=== PATIENT | male | born 1990 | race Caucasian/White ===

== ENCOUNTER 2022-02-12 15:25 | Outpatient (CLI) | payer BC, SELFPAY ==
--- NOTE | 2022-02-12 16:34 | XR_ITS ---
WS: [id number] LUMBAR SPINE: 3 VIEWS TECHNIQUE: AP, lateral and L5-S1 spot. HISTORY: BACK PAIN COMPARISON: None available. Lumbar vertebra are normally aligned. No loss of disc space or vertebral body height. Mild bilateral SI joint sclerosis and mild narrowing. No fusion. XR/XR lumbar spine 2-3V* [id number] IMPRESSION: 1. Normal lumbar spine. 2. Bilateral sacroiliitis. SI joints are narrowed with sclerosis.
--- NOTE | 2022-02-12 16:34 | XR_ITS ---
WS: [id number] XR thoracic spine 3V* [id number] REASON FOR EXAM: BACK PAIN FINDINGS: No vertebral body compression deformity or focal lesion. Intervertebral disc spaces are well preserved. Normal thoracic spine curvature. XR/XR thoracic spine 3V* [id number] IMPRESSION: No significant abnormality.
== END 2022-02-12 15:26 | disposition home or self-care (01) ==
PROVIDERS: PCP Nurse Practitioner Family; Visit Provider Family Medicine
DX: M54.6 Pain in thoracic spine (principal); M54.50 Low back pain, unspecified; M46.1 Sacroiliitis, not elsewhere classified
CPT/HCPCS: 72072; 72100

== ENCOUNTER 2023-11-28 18:01 | Inpatient (IN) | payer BC, SELFPAY ==
[2023-11-28 18:17] VITALS: BP 147/93; PULSE 108; RESP 18; TEMP 37.5; O2SAT 98; BMI 22.4
[2023-11-28 18:58] LABS: Basophils # 0.1 10^3/uL (0.0-0.1); Basophils % 0.4 %; Eosinophils # 0.3 10^3/uL (0.0-0.8); Eosinophils % 2.3 %; Hematocrit 44.2 % (37-53); Lymphocytes # 2.3 10^3/uL (0.8-4.8); Lymphocytes % 20.1 %; Mean Corpuscular HGB Conc 34.6 g/dL (30-55); Mean Corpuscular Hemoglobin 29.3 pg (27-33); Mean Corpuscular Volume 84.7 fl (82-101); Mean Platelet Volume 9.3 fL (7.4-10.4); Monocytes # 0.9 10^3/uL (0.2-0.9); Monocytes % 7.7 %; Neutrophils # 7.79 10^3/uL (1.8-7.7); Neutrophils % 69.2 %; Nucleated Red Blood Cells % 0 %; Platelet Count 269 10^3/cmm (157-399); Red Blood Count 5.22 10^6/uL (3.85-5.65); Red Cell Distribution Width 12.4 % (12.1-15.1); White Blood Count 11.27 10^3/uL (3.29-11.43)
[2023-11-28 19:13] LABS: Alanine Aminotransferase 372 U/L (0-41); Albumin Level 4.7 g/dL (3.5-5.2); Alkaline Phosphatase 36 U/L (40-130); Anion Gap 15.1 (5-19); Blood Urea Nitrogen 26 mg/dL (6-20); Calcium 9.3 mg/dL (8.5-10.5); Carbon Dioxide 25 mmol/L (22-29); Chloride 102 mmol/L (98-107); Creatinine Clr Calc Pharmacy 90.9051; Globulin 2.6 g/dL (1.3-4.6); Glucose 112 mg/dL (65-115); Osmolality Calculated 292 mOsm/kg (285-295); Potassium 4.1 mmol/L (3.5-5.1); Sodium 138 mmol/L (136-145); Total Bilirubin 0.4 mg/dL (0.15-1.2); Total Protein 7.3 g/dL (6.6-8.7)
[2023-11-28 19:26] LABS: Aspartate Amino Transferase 1459 U/L (0-40)
--- NOTE | 2023-11-28 19:29 | CTR_ITS ---
PROCEDURE INFORMATION: Exam: CT Abdomen And Pelvis With Contrast Exam date and time: 11/28/2023 7:54 PM Age: 33 years old Clinical indication: Other: Dark urine; Additional info: Dark urine, elevated ast TECHNIQUE: Imaging protocol: Computed tomography of the abdomen and pelvis with contrast. Radiation optimization: All CT scans at this facility use at least one of these dose optimization techniques: automated exposure control; mA and/or kV adjustment per patient size (includes targeted exams where dose is matched to clinical indication); or iterative reconstruction. Contrast material: OMNI 350; Contrast volume: 100 ml; Contrast route: INTRAVENOUS (IV); COMPARISON: CR XR lumbar spine 2-3V* [id number] 02/12/2022 4:34 PM RADIATION DOSE METRICS: Total DLP (mGy-cm): 449.4 FINDINGS: Lungs: The lung bases are clear and free of effusions. Liver: The liver is normal except for some incidental focal fat in the liver near the falciform ligament. Gallbladder and biliary ducts: Normal. No calcified stones. No ductal dilation. Pancreas: Normal. No ductal dilation. Spleen: Normal. No splenomegaly. Adrenal glands: Normal. No mass. Kidneys and ureters: Normal. No hydronephrosis. Stomach and bowel: No bowel obstruction or ileus. No free fluid, free air or abscess. No bowel obstruction or ileus. Appendix: No evidence of appendicitis. Intraperitoneal space: See Stomach and bowel finding. Vasculature: Unremarkable. No abdominal aortic aneurysm. Lymph nodes: Unremarkable. No enlarged lymph nodes. Urinary bladder: Unremarkable as visualized. Reproductive: Unremarkable as visualized. Bones/joints: Mild chronic degenerative changes in the lower lumbar spine. Soft tissues: Unremarkable. CT/CT abdomen pelvis w con* [id number] IMPRESSION: Unremarkable abdomen and pelvis
--- NOTE | 2023-11-28 19:35 | ED_ITS ---
HPI - Male Genitourinary 2 General: Chief complaint: Urogenital-Male Stated complaint: Urain is a dark brown color Time Seen by Provider: 11/28/23 18:44 Source: patient Mode of arrival: ambulatory Limitations: no limitations History of Present Illness: Patient is a 33-year-old male who presents to the emergency department complaining of dark urine onset today. Patient states that earlier this morning he had an episode of urination that he noticed it to be very dark, thought he was dehydrated so he increase his water consumption. However he became concerned when his next subsequent voids revealed that it was still dark. This is his only complaint at this time, as he is not reporting any pain, obvious blood in his urine, history of kidney stones, fever, nausea or vomiting, abdominal pain, or back pain. He denies any pertinent past medical history. No dysuria. MD Complaint: other (Dark urine) Onset (ago): hour(s) Duration: constant Associated symptoms: Deny dysuria, hematuria, nausea or vomiting Review of Systems 2 General: Reports: 10 or more systems reviewed and unremarkable except in HPI and below Const: Denies: fever(s), chills, change in appetite, change in weight or diaphoresis ENMT: Denies: throat pain or hoarseness Card: Denies: chest pain, palpitations or lightheadedness Resp: Denies: dyspnea, productive cough or wheezing GI: Denies: abdominal pain, nausea, vomiting, diarrhea, constipation, bloating, change in stool character or hematochezia : Reports: other (Dark urine); Denies: flank pain, difficulty urinating, dysuria, urinary frequency, urinary urgency or hematuria Musc: Denies: neck pain or back pain Skin/Breast: Denies: rash or new lesions Neuro: Denies: headache(s) or dizziness Physical Exam 2 Const: COMMON NORMALS: no acute distress, average body habitus, patient oriented x3, no limitations, healthy appearing, alert and well nourished G ENERAL APPEARANCE: cooperative and comfortable ORIENTATION/CONSCIOUSNESS: Yes awake HENMT: COMMON NORMALS: normocephalic, atraumatic, hearing grossly normal bilaterally, external ears normal, Normal external nose present, Normal nasal mucous membranes and turbinates present and moist oral mucous membranes HEAD & SCALP: normocephalic and atraumatic NOSE: Normal external nose present and Normal nasal mucous membranes and turbinates present EXTERNAL EAR: Yes external ears normal Eye: COMMON NORMALS: Equal, round and reactive pupils present, EOMs intact bilaterally, conjunctivae normal and normal visual hood by confrontation C ONJUNCTIVA: Yes conjunctivae normal PUPIL: Yes Equal, round and reactive pupils present Neck/C-Spine: COMMON NORMALS: full ROM, supple, no meningeal signs and no JVD Resp: COMMON NORMALS: normal respiratory effort, No retractions, No use of accessory muscles and clear to auscultation bilaterally AUSCULTATION: clear to auscultation bilaterally, no crackles, no rales, no rhonchi and no wheezes Cardio: COMMON NORMALS: no JVD, regular rate, regular rhythm, S1 normal heart sound present, S2 normal heart sound present, No gallops present (Cardio), No clicks present (Cardio), No murmurs present (Cardio), No rub (Cardio) and Peripheral pulses 2+ throughout RATE: regular rate RHYTHM: regular rhythm HEART SOUNDS: S1 normal heart sound present and S2 normal heart sound present PERIPHERAL PULSES: Peripheral pulses 2+ throughout GI: COMMON NORMALS: Normal to inspection, nondistended, normoactive bowel sounds present, Soft to palpation, non-tender, No hepatosplenomegaly present and no masses AUSCULTATION: Yes normoactive bowel sounds PALPATION: Yes Soft to palpation, No Guarding due to palpation present (GI), No Rigid due to palpation and Yes No hepatosplenomegaly present RECTAL EXAM: Yes deferred : COMMON NORMALS: Yes no CVA tenderness BLADDER/KIDNEY EXAM: Yes no CVA tenderness Back/Pelvis: COMMON NORMALS: no CVA tenderness Extremity: COMMON NORMALS: normal to inspection and full ROM Neuro: COMMON NORMALS: patient oriented x3, moves all extremities, no focal motor deficits and no sensory deficits noted SENSORIUM/ORIENTATION: Yes alert MENINGEAL SIGNS: Yes no meningeal signs Psych: COMMON NORMALS: mental status grossly normal, cooperative and speech normal SPEECH: Yes normal speech Skin: COMMON NORMALS: no rashes or lesions noted GENERAL SKIN EXAM: no rashes or lesions noted Course 2 Vital Signs: Vital signs: Vital Signs Temperature 99.5 F 11/28/23 18:17 Pulse Rate 98 11/28/23 20:30 Respiratory Rate 16 11/28/23 20:30 Blood Pressure 138/91 11/28/23 20:30 Pulse Oximetry 100 11/28/23 20:30 Oxygen Delivery Me thod Room Air 11/28/23 18:17 MDM - Male Medical Decision Making Patient presented with concerns of episodes of dark urine. He had no other symptoms to report, no pain or burning with urination. His vitals on arrival were ultimately unremarkable, condition has remained stable throughout ED course. Physical examination was completely normal. Initial CBC did not reveal any abnormalities, though his CMP revealed his AST to be 1500 and significantly elevated compared to his ALT. Upon further questioning he denies any history of heavy alcohol use or cirrhosis of the liver. Additionally after reexamination he is not having any pain in the right upper quadrant. Urinalysis revealed evidence of blood, though no signs of infection. BUN and creatinine both found to be mildly elevated, however his CPK was noted to be greater than 125,000. A hepatitis panel was ordered and negative, along with CT of the abdomen pelvis. I spoke with hospitalist/infectious disease physician, Dr. Rosales, who requests troponin series EKG urine drug screen and blood cultures at this time and [facility]. Informed patient of this who is agreeing on coming into the hospital. Care of this patient discussed with supervising ED physician, Dr. Mccauley, who agrees with disposition at this time. Lab Data I reviewed the patient's lab results. 11/28/23 18:45 11/28/23 18:45 Radiology Impressions Abdomen/Pelvis CT 11/28/23 19:29 IMPRESSION: Unremarkable abdomen and pelvis Laboratory Results WBC 11.27 10^3/uL (3.29-11.43) 11/28/23 18:45 RBC 5.22 10^6/uL (3.85-5.65) 11/28/23 18:45 Hgb 15.30 g/dL (11.27-16.99) 11/28/23 18:45 Hct 44.2 % (37-53) 11/28/23 18:45 MCV 84.7 fl (82-101) 11/28/23 18:45 MCH 29.3 pg (27-33) 11/28/23 18:45 MCHC 34.6 g/dL (30-55) 11/28/23 18:45 RDW 12.4 % (12.1-15.1) 11/28/23 18:45 Plt Count 269 10^3/cmm (157-399) 11/28/23 18:45 MPV 9.3 fL (7.4-10.4) 11/28/23 18:45 Neut % (Auto) 69.2 % 11/28/23 18:45 Lymph % (Auto) 20.1 % 11/28/23 18:45 [place] % (Auto) 7.7 % 11/28/23 18:45 Eos % (Auto) 2.3 % 11/28/23 18:45 Baso % (Auto) 0.4 % 11/28/23 18:45 Neut # (Auto) 7.79 10^3/uL (1.8-7.7) H 11/28/23 18:45 Lymph # (Auto) 2.3 10^3/uL (0.8-4.8) 11/28/23 18:45 [place] # (Auto) 0.9 10^3/uL (0.2-0.9) 11/28/23 18:45 Eos # (Auto) 0.3 10^3/uL (0.0-0.8) 11/28/23 18:45 Baso # (Auto) 0.1 10^3/uL (0.0-0.1) 11/28/23 18:45 Nucleated RBC % (auto) 0 % 11/28/23 18:45 Nucleated RBCs # 0.0 /100WBC 11/28/23 18:45 Sodium 138 mmol/L (136-145) 11/28/23 18:45 Potassium 4.1 mmol/L (3.5-5.1) 11/28/23 18:45 Chloride 102 mmol/L (98-107) 11/28/23 18:45 Carbon Dioxide 25 mmol/L (22-29) 11/28/23 18:45 Anion Gap 15.1 (5-19) 11/28/23 18:45 BUN 26 mg/dL (6-20) H 11/28/23 18:45 Creatinine 1.3 mg/dL (0.7-1.2) H 11/28/23 18:45 GFR Calculation 64.0 mL/min (90-130) L 11/28/23 18:45 Glucose 112 mg/dL (65-115) 11/28/23 18:45 Calculated Osmolality 292 mOsm/kg (285-295) 11/28/23 18:45 Calcium 9.3 mg/dL (8.5-10.5) 11/28/23 18:45 Total Bilirubin 0.4 mg/dL (0.15-1.2) 11/28/23 18:45 AST 1459 U/L (0-40) H 11/28/23 18:45 ALT 372 U/L (0-41) H 11/28/23 18:45 Alkaline Phosphatase 36 U/L (40-130) L 11/28/23 18:45 Creatine Kinase > 137049 U/L (39-308) H* 11/28/23 18:45 Total Protein 7.3 g/dL (6.6-8.7) 11/28/23 18:45 Albumin 4.7 g/dL (3.5-5.2) 11/28/23 18:45 Globulin 2.6 g/dL (1.3-4.6) 11/28/23 18:45 Urine Color Yellow (Yellow) 11/28/23 20:37 Urine Appearance Clear (CLEAR) 11/28/23 20:37 Urine pH 5 (5-7) 11/28/23 20:37 Ur Specific [place] 1.010 (1.005-1.030) 11/28/23 20:37 Urine Protein 1+ (Negative) H 11/28/23 20:37 Urine Glucose (UA) Norm (Normal) 11/28/23 20:37 Urine Ketones Negative (Negative) 11/28/23 20:37 Urine Blood 3+ (Negative) H 11/28/23 20:37 Urine Nitrate Negative (Negative) 11/28/23 20:37 Urine Bilirubin Neg (Negative) 11/28/23 20:37 Urine Urobilinogen Neg mg/dL (Negative) 11/28/23 20:37 Ur Leukocyte Esterase Negative (Negative) 11/28/23 20:37 Urine RBC 0-4 /hpf (0-2) H 11/28/23 20:37 Urine WBC 0-4 /hpf (0-5) H 11/28/23 20:37 Ur Squamous Epith Cells None /hpf (0-5) 11/28/23 20:37 Amorphous Sediment 2+ /hpf 11/28/23 20:37 Urine Bacteria Trace /hpf (NONE) 11/28/23 20:37 Urine Mucus 2+ /hpf 11/28/23 20:37 Urine Opiates Screen Negative ng/mL (Negative) 11/28/23 20:37 Ur Barbiturates Screen Negative ng/mL (Negative) 11/28/23 20:37 Ur Phencyclidine Scrn Negative ng/mL (Negative) 11/28/23 20:37 Ur Amphetamines Screen Negative ng/mL (Negative) 11/28/23 20:37 U Benzodiazepines Scrn Negative ng/mL (Negative) 11/28/23 20:37 Urine Cocaine Screen Negative ng/mL (Negative) 11/28/23 20:37 U Marijuana (THC) Screen Negative ng/mL (Negative) 11/28/23 20:37 Hepatitis A IgM Ab Non-reactive (Nonreactive) 11/28/23 18:45 Hep Bs Antigen Non-reactive (Nonreactive) 11/28/23 18:45 Hep B Core IgM Ab Non-reactive (Nonreactive) 11/28/23 18:45 Hepatitis C Antibody Non-reactive (Nonreactive) 11/28/23 18:45 All radiology interpretation(s) finalized by discharge Discharge Plan Discharge Patient Disposition: Admitted As Inpatient Admit Provider: Dalia Rosales Clinical Impression: Rhabdomyolysis, Elevated liver enzymes Condition: Stable Coding Level of Care Code ED Hydramatic Mechanic for González Wilson
[2023-11-28] MEDS: sodium chloride 0.9% 1,000 ML 999 ML IV (19:40)
[2023-11-28] MEDS: iohexol 350 mg/mL 500 mL Btl (per mL) IV (19:57)
[2023-11-28 20:30] VITALS: BP 138/91; PULSE 98; RESP 16; O2SAT 100
[2023-11-28 21:13] LABS: Hepatitis A Antibody IgM Non-Reactive (Nonreactive); Hepatitis B Core IgM Non-Reactive (Nonreactive); Hepatitis B Surface Antigen Non-Reactive (Nonreactive); Hepatitis C Virus Antibody Non-Reactive (Nonreactive)
[2023-11-28 21:15] LABS: Urine Appearance Clear (CLEAR); Urine Color Yellow (Yellow); pH Urine 5 (5-7)
[2023-11-28 21:16] LABS: Add Urine Culture? No; Add Urine Microscopic? YES; Amorphous Sediment Urine 2+ /hpf; Bacteria Urine TRACE /hpf; Bilirubin Urine Neg (Negative); Blood Urine 3+ (Negative); Glucose Urine UA Norm (Normal); Ketones Urine Negative (Negative); Leukocyte Esterase Urine Negative (Negative); Mucus Urine 2+ /hpf; Nitrate Urine Negative (Negative); Protein Urine 1+ (Negative); RBC Urine 0-4 /hpf (0-2); Urobilinogen Urine Neg (Negative); WBC Urine 0-4 /hpf (0-5)
[2023-11-28 21:35] LABS: Creatine Phosphokinase > 125866 U/L (39-308)
--- NOTE | 2023-11-28 22:02 | ECG_ITS ---
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 Measurements Intervals [place] Rate: 71 P: 57 SD: 156 QRS: 44 QRSD: 90 T: 59 QT: 347 QTc: 379 Interpretive Statements SINUS RHYTHM EARLY REPOLARIZATION [ST ELEVATION WITH NORMALLY INFLECTED T-WAVE] No previous ECG available for comparison Electronically Signed On 11-29-2023 23:43:00 CDT by Goldy Mendez M.D. [id number]
[2023-11-28 22:03] LABS: Amphetamines Screen Urine Negative (Negative); Barbiturates Screen Urine Negative (Negative); Benzodiazepines Screen Urine Negative (Negative); Cocaine Screen Urine Negative (Negative); Opiate Screen Urine Negative (Negative); PCP Screen Urine Negative (Negative); THC Screen Urine Negative (Negative)
[2023-11-28 22:35] VITALS: BMI 22.4
[2023-11-28 22:37] VITALS: BP 131/89; PULSE 91; RESP 14; TEMP 37.5; O2SAT 100
[2023-11-28 23:54] VITALS: BP 130/83; PULSE 73; RESP 19; TEMP 36.9; O2SAT 97
[2023-11-29] VITALS (8 sets, daily range): BP systolic 122–133; BP diastolic 72–83; PULSE 50–89; RESP 17–20; TEMP 36.5–36.9; O2SAT 97–98
[2023-11-29 00:44] LABS: Troponin(5th) Baseline 48 ng/L (0-15)
--- NOTE | 2023-11-29 02:24 | PM.HP ---
Providers/Chief Complaint Admitting Physician: Dalia Rosales MD Primary Care Provider: Herberth Giang NP Chief Complaint: Urain is a dark brown color History of Present Illness Mark White is a 33 year old male who presented to the emergency room after noticing high colored urine. State of health until yesterday when he noticed his urine to be extremely uncomfortable. This made him concerned to come to the emergency room. Here he was found to have close transaminitis and rhabdomyolysis. He denies any IV drug use. Denies any recent nausea vomiting diarrhea. He has recently started working out in the gym over the weekend. He has had generalized body ache thereafter. He has been drinking some Meal replacement protein supplements over the past few months. He is unsure of contents of the same. No recent URI symptoms, cough, chest pain, dyspnea. No abdominal pain, nausea or vomiting, diarrhea. No recent fever. T max 99.5F, no recent sick contacts Review of Systems General: Reports: 10 or more systems reviewed and unremarkable except in HPI and below Const: Denies: fever(s), chills or body aches Eyes: Denies: change in vision, blurry vision or photophobia ENMT: Reports: hoarseness; Denies: throat pain, enlarged tonsils, odynophagia or nasal congestion Card: Denies: chest pain, palpitations, irregular heart rhythm, edema, swelling of feet/ankles, lightheadedness, pre-syncope, dyspnea on exertion or orthopnea Resp: Denies: dyspnea, productive cough, non-productive cough, wheezing, stridor, pain on inspiration, change in phlegm color, hemoptysis or chest congestion GI: Denies: abdominal pain, nausea, vomiting, hematemesis, coffee ground emesis, dysphagia, heartburn, diarrhea, constipation, GI cramping, change in stool character, hematochezia or melena : Denies: flank pain, dysuria, urinary frequency, urinary urgency, urinary hesitancy or hematuria Musc: Denies: neck pain, back pain, extremity pain, joint swelling, joint warmth or deformity Neuro: Denies: headache(s), numbness in extremities, weakness in extremities, sensory changes, difficulty walking, frequent falls, dizziness, vertigo, behavioral changes, Slurred speech present or seizure-like activity Psych: Denies: anxiety, depression, suicidal ideation or homicidal ideation Endo: Denies: polyuria, polydipsia, tired all the time, cold intolerance or hot flashes Jon/Lymph: Denies: easy bruising or easy bleeding Medications/Allergies Home Medications Medication Instructions Recorded Confirmed Last Taken Type No Known Home Medications 11/28/23 11/28/23 Unknown History Allergies Allergy/AdvReac Type Severity Reaction Status Date / Time epinephrine Allergy Unknown Verified 11/28/23 18:23 morphine Allergy Unknown Verified 11/28/23 18:23 Penicillins Allergy Unknown Verified 11/28/23 18:22 Sulfa (Sulfonamide Allergy Unknown Verified 11/28/23 18:23 Antibiotics) Vitals/I&O/Wt Last Vital Signs Temp 98.4 F 11/28/23 23:54 Pulse 73 11/28/23 23:54 Resp 19 H 11/28/23 23:54 BP 130/83 11/28/23 23:54 Pulse Ox 97 11/28/23 23:54 O2 Del Method Room Air 11/28/23 23:54 11/28/23 11/28/23 11/29/23 14:59 22:59 06:59 Intake Total 1000 / 1000 Balance 1000 / 1000 Weight last 48 hrs Weight 77.111 kg Weight 77.111 kg Weight 77.111 kg Physical Exam Narrative: General: No acute distress, AO x3 HEENT: PERRLA, pupils bilaterally equal and reactive, pallors not present Chest: Normal vesicular breath sounds, no added sounds, equal good air entry bilaterally CVS: S1-S2 regular, no murmurs, no tachycardia, no gallops, no rubs Abdomen: Soft, nontender, no organomegaly, bowel sounds present Neuro: No focal deficits, no facial deformity, AO x3, power 5/5 in all limbs Extremities: Multiple tatttoos over B/L upper extremities Data 11/28/23 18:45 11/29/23 02:20 Other Labs: Radiology Impressions Abdomen/Pelvis CT 11/28/23 19:29 IMPRESSION: Unremarkable abdomen and pelvis Laboratory Results WBC 11.27 10^3/uL (3.29-11.43) 11/28/23 18:45 RBC 5.22 10^6/uL (3.85-5.65) 11/28/23 18:45 Hgb 15.30 g/dL (11.27-16.99) 11/28/23 18:45 Hct 44.2 % (37-53) 11/28/23 18:45 MCV 84.7 fl (82-101) 11/28/23 18:45 MCH 29.3 pg (27-33) 11/28/23 18:45 MCHC 34.6 g/dL (30-55) 11/28/23 18:45 RDW 12.4 % (12.1-15.1) 11/28/23 18:45 Plt Count 269 10^3/cmm (157-399) 11/28/23 18:45 MPV 9.3 fL (7.4-10.4) 11/28/23 18:45 Neut % (Auto) 69.2 % 11/28/23 18:45 Lymph % (Auto) 20.1 % 11/28/23 18:45 [place] % (Auto) 7.7 % 11/28/23 18:45 Eos % (Auto) 2.3 % 11/28/23 18:45 Baso % (Auto) 0.4 % 11/28/23 18:45 Neut # (Auto) 7.79 10^3/uL (1.8-7.7) H 11/28/23 18:45 Lymph # (Auto) 2.3 10^3/uL (0.8-4.8) 11/28/23 18:45 [place] # (Auto) 0.9 10^3/uL (0.2-0.9) 11/28/23 18:45 Eos # (Auto) 0.3 10^3/uL (0.0-0.8) 11/28/23 18:45 Baso # (Auto) 0.1 10^3/uL (0.0-0.1) 11/28/23 18:45 Nucleated RBC % (auto) 0 % 11/28/23 18:45 Nucleated RBCs # 0.0 /100WBC 11/28/23 18:45 Sodium 138 mmol/L (136-145) 11/29/23 02:20 Potassium 4.1 mmol/L (3.5-5.1) 11/29/23 02:20 Chloride 103 mmol/L (98-107) 11/29/23 02:20 Carbon Dioxide 23 mmol/L (22-29) 11/29/23 02:20 Anion Gap 16.1 (5-19) 11/29/23 02:20 BUN 21 mg/dL (6-20) H 11/29/23 02:20 Creatinine 1.0 mg/dL (0.7-1.2) 11/29/23 02:20 GFR Calculation 86.6 mL/min (90-130) L 11/29/23 02:20 Glucose 93 mg/dL (65-115) 11/29/23 02:20 Calculated Osmolality 289 mOsm/kg (285-295) 11/29/23 02:20 Calcium 8.9 mg/dL (8.5-10.5) 11/29/23 02:20 Magnesium 2.1 mg/dL (1.7-2.3) 11/29/23 02:20 Total Bilirubin 0.3 mg/dL (0.15-1.2) 11/29/23 02:20 AST 1171 U/L (0-40) H 11/29/23 02:20 ALT 309 U/L (0-41) H 11/29/23 02:20 Alkaline Phosphatase 33 U/L (40-130) L 11/29/23 02:20 Creatine Kinase > 339698 U/L (39-308) H* 11/28/23 18:45 Troponin T Baseline 48 ng/L (0-15) H 11/29/23 00:00 Troponin T 120 Minute 38.40 ng/L (0-15) H 11/29/23 02:20 Delta Troponin T -9.60 ABS# (0-10) L 11/29/23 02:20 Total Protein 6.3 g/dL (6.6-8.7) L 11/29/23 02:20 Albumin 4.0 g/dL (3.5-5.2) 11/29/23 02:20 Globulin 2.3 g/dL (1.3-4.6) 11/29/23 02:20 Procalcitonin 0.24 ng/mL (0-0.5) 11/29/23 02:20 TSH 2.85 uIU/mL (0.27-4.20) 11/29/23 02:20 Urine Color Yellow (Yellow) 11/28/23 20:37 Urine Appearance Clear (CLEAR) 11/28/23 20:37 Urine pH 5 (5-7) 11/28/23 20:37 Ur Specific [place] 1.010 (1.005-1.030) 11/28/23 20:37 Urine Protein 1+ (Negative) H 11/28/23 20:37 Urine Glucose (UA) Norm (Normal) 11/28/23 20:37 Urine Ketones Negative (Negative) 11/28/23 20:37 Urine Blood 3+ (Negative) H 11/28/23 20:37 Urine Nitrate Negative (Negative) 11/28/23 20:37 Urine Bilirubin Neg (Negative) 11/28/23 20:37 Urine Urobilinogen Neg mg/dL (Negative) 11/28/23 20:37 Ur Leukocyte Esterase Negative (Negative) 11/28/23 20:37 Urine RBC 0-4 /hpf (0-2) H 11/28/23 20:37 Urine WBC 0-4 /hpf (0-5) H 11/28/23 20:37 Ur Squamous Epith Cells None /hpf (0-5) 11/28/23 20:37 Amorphous Sediment 2+ /hpf 11/28/23 20:37 Urine Bacteria Trace /hpf (NONE) 11/28/23 20:37 Urine Mucus 2+ /hpf 11/28/23 20:37 Urine Opiates Screen Negative ng/mL (Negative) 11/28/23 20:37 Ur Barbiturates Screen Negative ng/mL (Negative) 11/28/23 20:37 Ur Phencyclidine Scrn Negative ng/mL (Negative) 11/28/23 20:37 Ur Amphetamines Screen Negative ng/mL (Negative) 11/28/23 20:37 U Benzodiazepines Scrn Negative ng/mL (Negative) 11/28/23 20:37 Urine Cocaine Screen Negative ng/mL (Negative) 11/28/23 20:37 U Marijuana (THC) Screen Negative ng/mL (Negative) 11/28/23 20:37 Ethyl Alcohol < 10 mg/dL (0-10) 11/29/23 02:20 Hepatitis A IgM Ab Non-reactive (Nonreactive) 11/28/23 18:45 Hep Bs Antigen Non-reactive (Nonreactive) 11/28/23 18:45 Hep B Core IgM Ab Non-reactive (Nonreactive) 11/28/23 18:45 Hepatitis C Antibody Non-reactive (Nonreactive) 11/28/23 18:45 Micro: Microbiology 11/29/23 00:00 Blood Culture - Preliminary Blood SPECIMEN COLLECTED 11/29/23 00:00 Blood Culture - Preliminary Blood SPECIMEN COLLECTED A&P Assessment and plan (1) Acute hepatitis: Elevated liver enzymes with AST 1400, ALT 372, alkaline phosphatase normal. CT of the abdomen and pelvis without gross abnormalities in the liver or biliary tree. Differentials include infectious versus noninfectious causes. Hepatitis A IgM, hepatitis C screen, hepatitis B surface antigen negative Check tick panel, EBV, CMV, HIv serology, resp panel for adenovirus, coxsackie, Covid Check alcohol level , acetaminopehn and salicylate level May be related to his current nutrition supplements- he does not recall the name of this supplement currently. Asked if family members or friends could bring in supplement to review in am. Hydration with NS @ 125 cc/hr , recheck with hydration (2) Rhabdomyolysis: May be related to excessive physical activity at the gym vs nutritional symptoms IV hydration NS @ 125 cc/ hr recheck with hydration Qualifiers: Rhabdomyolysis type: non-traumatic Qualified Code(s): M62.82 - Rhabdomyolysis (3) YONATAN (acute kidney injury): related to rhabdomyolysis Ua with 3+ blood, likely myoglobin Plan Dvt ppx: lovenox 40 Full code Attestations Medical Necessity Statement*: > 2 midnight admission is anticipated Coding Level of Care Code Acute Code for Chg Fwd High MDM includes number and complexity of problems actively addressed during encounter, amount and/or complexity of data reviewed/ordered and described risk of complication, morbidity or mortality of management as documented Diagnoses Acute hepatitis B17.9 Rhabdomyolysis M62.82 Rhabdomyolysis type: non-traumatic YONATAN (acute kidney injury) N17.9
[2023-11-29 02:48] LABS: Alcohol Level < 10 mg/dL (0-10)
[2023-11-29 02:57] LABS: Procalcitonin 0.24 ng/mL (0-0.5); Thyroid Stimulating Hormone 2.85 uIU/mL (0.27-4.20)
[2023-11-29] MEDS: sodium chloride 0.9% 1,000 ML 125 ML IV ×2 (03:05→11:27)
[2023-11-29] MEDS: enoxaparin 40 mg/0.4 mL Syringe SUBCUT (03:05)
[2023-11-29 03:08] LABS: Alanine Aminotransferase 309 U/L (0-41); Alkaline Phosphatase 33 U/L (40-130); Anion Gap 16.1 (5-19); Blood Urea Nitrogen 21 mg/dL (6-20); Calcium 8.9 mg/dL (8.5-10.5); Carbon Dioxide 23 mmol/L (22-29); Chloride 103 mmol/L (98-107); Creatinine Clr Calc Pharmacy 118.1766; Globulin 2.3 g/dL (1.3-4.6); Glomerular Filtration Rate 86.6 mL/min (90-130); Glucose 93 mg/dL (65-115); Magnesium 2.1 mg/dL (1.7-2.3); Osmolality Calculated 289 mOsm/kg (285-295); Potassium 4.1 mmol/L (3.5-5.1); Sodium 138 mmol/L (136-145); Total Bilirubin 0.3 mg/dL (0.15-1.2); Total Protein 6.3 g/dL (6.6-8.7)
[2023-11-29 03:21] LABS: Aspartate Amino Transferase 1171 U/L (0-40)
[2023-11-29 04:08] LABS: Creatine Phosphokinase 96367 U/L (39-308)
--- NOTE | 2023-11-29 04:35 | ECG_ITS ---
[facility] Test Date: 2023-11-29 Pat Name: Mark White Department: Room: 273 Gender: Male Speech Professor: : 1990 Requested By: Ricardo Damon Order Number: [id number] Opal MD: Goldy Mendez M.D. Measurements Intervals [place] Rate: 59 P: 61 AL: 155 QRS: 55 QRSD: 89 T: 64 QT: 373 QTc: 370 Interpretive Statements SINUS BRADYCARDIA EARLY REPOLARIZATION [ST ELEVATION WITH NORMALLY INFLECTED T-WAVE] Compared to ECG 11/28/2023 22:02:38 Sinus rhythm no longer present Electronically Signed On 11-29-2023 23:55:49 CDT by Goldy Mendez M.D. [id number]
[2023-11-29 05:18] LABS: Acetaminophen < 5.0 ug/mL (10-30); Salicylate < 0.3 mg/dL (3-10)
[2023-11-29 06:37] LABS: Basophils % 0.5 %; Eosinophils # 0.5 10^3/uL (0.0-0.8); Eosinophils % 6.4 %; Hematocrit 46.2 % (37-53); Lymphocytes # 2.5 10^3/uL (0.8-4.8); Lymphocytes % 31.3 %; Mean Corpuscular HGB Conc 33.3 g/dL (30-55); Mean Corpuscular Hemoglobin 28.3 pg (27-33); Mean Corpuscular Volume 84.8 fl (82-101); Mean Platelet Volume 9.3 fL (7.4-10.4); Monocytes # 0.7 10^3/uL (0.2-0.9); Neutrophils # 4.13 10^3/uL (1.8-7.7); Neutrophils % 52.5 %; Nucleated Red Blood Cells % 0 %; Platelet Count 240 10^3/cmm (157-399); Red Blood Count 5.45 10^6/uL (3.85-5.65); Red Cell Distribution Width 12.5 % (12.1-15.1); White Blood Count 7.86 10^3/uL (3.29-11.43)
[2023-11-29 06:37] LABS: Adenovirus Not Detected (NOT DETECT); Chlamydia Pneumoniae Not Detected (NOT DETECT); Coronavirus 229E,HKU1,NL63,OC4 Not Detected (NOT DETECT); Human Metapneumovirus Not Detected (NOT DETECT); Human Rhinovirus/Enterovirus Not Detected (NOT DETECT); Influenza A Not Detected (NOT DETECT); Influenza A H1 Not Detected (NOT DETECT); Influenza A H1-2009 Not Detected (NOT DETECT); Influenza A H3 Not Detected (NOT DETECT); Influenza B Not Detected (NOT DETECT); Mycoplasma Pneumoniae Not Detected (NOT DETECT); Parainfluenza Virus Type 1 Not Detected (NOT DETECT); Parainfluenza Virus Type 2 Not Detected (NOT DETECT); Parainfluenza Virus Type 3 Not Detected (NOT DETECT); Parainfluenza Virus Type 4 Not Detected (NOT DETECT); Respiratory Syncytial Virus A Not Detected (NOT DETECT); Respiratory Syncytial Virus B Not Detected (NOT DETECT); SARS-COV-2 Not Detected (NOT DETECT)
[2023-11-29 07:48] LABS: HIV 1 & 2 Antibody Non-Reactive (Non-Reactiv); HIV 1 & 2 Antigen Non-Reactive (Non-Reactiv)
[2023-11-29] MEDS: pantoprazole DR 40 mg Tablet PO (09:28)
--- NOTE | 2023-11-29 09:38 | PC.CHAP ---
Pastoral Care Encounter/Spiritual Assessment Type of Contact [] Declined wholesale buyer visit [] Patient/Family/Request visit [] Outpatient visit [] Follow-up visit [] Physician referral [] Code/Alert [x] Routine visit [] Staff referral [] Actively dying [] Patient sleeping [] Family support [] [] Out of room [] Palliative care [] [] Receiving care in room [] Pre-surgical visit [] Trauma [] Long length of stay [] ICU visit [] Other: Relational/Emotional Strength x[] Patient feels connected with others/family/visitors/staff [] Distress [] Loneliness/isolation [] Abandonment Spirituality of Patient [] Person of Ashleigh [] Attends Holiness of their Ashleigh [x] Believes in Prayer [] Reads Bible or Mormon materials [] There are Spiritual issues to be addressed Collision Repair Technician Interventions [x] Prayer [] Active listening [] Non-anxious presence [x] Spiritual/emotional support [] Crisis/trauma care [] Spiritual counseling [] Bereavement support [] Provided bereavement packet [] Provided Bible/devotional materials [] Provided toy/stuffed animal, coloring book to patient or family member [] Provided Communion [] Anointing/Taylor [] Salvation [x] Completed spiritual assessment [] Other: Impact on Illness or Injury [] Angry [] Fearful [] Anxious [] Often cries [] Exhaustion [] Unable to work [] Unable to attend mandaen [] Unable to walk/stand [] Unable to read [] Unable to drive [] Unable to eat/drink [] Unable to sleep [] Unable to be with family [] Patient intubated [] Other: Summary Time spent with patient 5 min
--- NOTE | 2023-11-29 18:34 | PM.PN ---
Subjective Subjective: He reports he is doing well. Denies muscle pain. Denies any new symptoms. He has been taking nutritional supplements to enhance calorie and protein intake, denies any weight loss supplements or medical supplements. He worked out on Tuesday and Tuesday and then was working on Tuesday as well his workplace is not air conditioned, working at a [employer] where he is to be physically active. Vitals/I&O/Wt Last Vital Signs Temp 97.7 F 11/29/23 10:34 Pulse 62 11/29/23 16:00 Resp 17 11/29/23 16:00 BP 122/72 11/29/23 16:00 Pulse Ox 97 11/29/23 16:00 O2 Del Method Room Air 11/29/23 16:00 11/29/23 11/29/23 11/29/23 06:59 14:59 22:59 Intake Total 400 / 1400 1360 / 1360 240 / 1600 Output Total 400 / 400 900 / 900 1700 / 2600 Balance 0 / 1000 460 / 460 -1460 / -1000 Weight last 48 hrs Weight 79.832 kg Weight 77.111 kg Weight 77.111 kg Weight 77.111 kg Physical Exam Narrative: Accompanied by his foster mom. Const: COMMON NORMALS: patient oriented x3 and alert GENERAL APPEARANCE: cooperative ORIENTATION/CONSCIOUSNESS: Yes awake HENMT: COMMON NORMALS: oropharynx normal Neck/C-Spine: COMMON NORMALS: no JVD Resp: COMMON NORMALS: normal respiratory effort and clear to auscultation bilaterally AUSCULTATION: clear to auscultation bilaterally Cardio: COMMON NORMALS: no JVD, regular rhythm, S1 normal heart sound present, S2 normal heart sound present and No murmurs present (Cardio) RHYTHM: regular rhythm HEART SOUNDS: S1 normal heart sound present and S2 normal heart sound present GI: COMMON NORMALS: Normal to inspection, nondistended, normoactive bowel sounds present, Soft to palpation and non-tender PALPATION: Yes Soft to palpation Extremity: COMMON NORMALS: no joint enlargement and no pedal edema Neuro: COMMON NORMALS: patient oriented x3 and moves all extremities SENSORIUM/ORIENTATION: Yes alert Skin: COMMON NORMALS: no rashes or lesions noted GENERAL SKIN EXAM: no rashes or lesions noted OTHER: Tattoos. Data 11/29/23 06:10 11/29/23 02:20 Micro: Microbiology 11/29/23 00:00 Blood Culture - Preliminary Blood SPECIMEN COLLECTED 11/29/23 00:00 Blood Culture - Preliminary Blood SPECIMEN COLLECTED A&P Assessment and plan (1) Rhabdomyolysis: He was working out on both Tuesday and Tuesday and also working on Tuesday. She works at a [employer] performing physical work without air conditioning. Reviewed vitals, CBC, CMP, CK, troponin. CK is is still severely elevated, butis his downtrend. Down 96,367. Discussed with him and his foster mother with regards to risk of kidney injury. Continue IV hydration. As per discussion with family would prefer increasing fluid rate, increase up to 250 mL/h. Monitor for risk of fluid overload. He knows to let us know in case of symptoms. Follow-up CMP, CK. Discussed with nursing, embedded software manager. Qualifiers: Rhabdomyolysis type: non-traumatic Qualified Code(s): M62.82 - Rhabdomyolysis (2) Acute hepatitis: Suspected acute transaminitis, although he states he has not had blood drawn in years. Unknown baseline liver parameters. There is quite significant elevation of AST compared to ALT and likely this may be spurious result due to severe CK elevation/rhabdomyolysis. So far hepatitis studies have been negative on review of viral hepatitis test, coronavirus PCR panel, HIV, respiratory viral panel negative. Tick panel pending, although he is not aware of getting any ticks. Reassess liver parameters. He occasionally takes ibuprofen for aches and pains, but nothing recent. Discussed with him to avoid NSAIDs. Discussed with him and his family to follow-up for reassessment for normalization of liver function and/or further workup for any possible underlying chronic metabolic/autoimmune or other cause. Reassess CMP. (3) YONATAN (acute kidney injury): related to rhabdomyolysis Ua with 3+ blood, likely myoglobin Plan Dvt ppx: lovenox 40 Full code Attestations Medical Necessity Statement*: Continue admission for assessment management of severe rhabdomyolysis, hepatitis. and High MDM includes amount and/or complexity of data reviewed/ordered [ resulted lab(s)/test(s), ordered lab(s)/test(s) and other healthcare professional discussion] and described risk of complication, morbidity or mortality of management as documented Diagnoses Rhabdomyolysis M62.82 Rhabdomyolysis type: non-traumatic Acute hepatitis B17.9 YONATAN (acute kidney injury) N17.9
[2023-11-29] MEDS: sodium chloride 0.9% 1,000 ML 250 ML IV ×2 (19:28→23:20)
--- NOTE | 2023-11-29 19:39 | PC.NURSE ---
pt refused SCD's. patient was educated on purpose. patient is getting lovenox for VTE and is upadlib
[2023-11-30] VITALS (8 sets, daily range): BP systolic 123–137; BP diastolic 73–85; PULSE 45–82; RESP 17–20; TEMP 36.4–37.1; O2SAT 91–99; BMI 23.3
[2023-11-30] MEDS: sodium chloride 0.9% 1,000 ML 250 ML IV ×6 (03:06→23:59)
[2023-11-30] MEDS: enoxaparin 40 mg/0.4 mL Syringe SUBCUT (03:06)
[2023-11-30 05:08] LABS: Basophils % 0.4 %; Eosinophils # 0.5 10^3/uL (0.0-0.8); Eosinophils % 6.1 %; Hematocrit 42.4 % (37-53); Lymphocytes # 2.5 10^3/uL (0.8-4.8); Lymphocytes % 30.8 %; Mean Corpuscular Hemoglobin 28.3 pg (27-33); Mean Corpuscular Volume 85.8 fl (82-101); Mean Platelet Volume 9.5 fL (7.4-10.4); Monocytes # 0.7 10^3/uL (0.2-0.9); Monocytes % 8.1 %; Neutrophils # 4.48 10^3/uL (1.8-7.7); Neutrophils % 54.2 %; Nucleated Red Blood Cells % 0 %; Platelet Count 206 10^3/cmm (157-399); Red Blood Count 4.94 10^6/uL (3.85-5.65); Red Cell Distribution Width 12.5 % (12.1-15.1); White Blood Count 8.25 10^3/uL (3.29-11.43)
[2023-11-30 05:27] LABS: Alanine Aminotransferase 311 U/L (0-41); Alkaline Phosphatase 30 U/L (40-130); Anion Gap 12.7 (5-19); Blood Urea Nitrogen 14 mg/dL (6-20); Calcium 8.6 mg/dL (8.5-10.5); Carbon Dioxide 27 mmol/L (22-29); Chloride 105 mmol/L (98-107); Globulin 2.2 g/dL (1.3-4.6); Glomerular Filtration Rate 97.8 mL/min (90-130); Glucose 100 mg/dL (65-115); Osmolality Calculated 291 mOsm/kg (285-295); Potassium 4.7 mmol/L (3.5-5.1); Sodium 140 mmol/L (136-145); Total Bilirubin 0.5 mg/dL (0.15-1.2); Total Protein 6.2 g/dL (6.6-8.7)
[2023-11-30 06:21] LABS: Aspartate Amino Transferase 851 U/L (0-40)
[2023-11-30 06:23] LABS: Creatine Phosphokinase > 57173 U/L (39-308)
[2023-11-30] MEDS: pantoprazole DR 40 mg Tablet PO (09:23)
[2023-11-30 11:31] LABS: EBV IGG TEST <18.00 U/mL; EBV IGM TEST <36.00 U/mL; EBV Nuclear AG <18.00 U/mL
[2023-11-30 12:55] LABS: Cytomegalovirus Antibody (IGM) <30.00 AU/mL
[2023-11-30 13:15] LABS: Lyme AB Screen <0.90 index
--- NOTE | 2023-11-30 19:32 | P.PN_ITS ---
Subjective 2 Subjective: He reports he is doing all right today. He is sitting up in a chair. Denies pain or muscle aches. No abdominal pain or discomfort. No GI symptoms. Vitals/I&O/Wt Last Vital Signs Temp 98.5 F 11/30/23 16:20 Pulse 52 L 11/30/23 16:20 Resp 18 11/30/23 16:20 BP 129/78 11/30/23 16:20 Pulse Ox 99 11/30/23 16:20 O2 Del Method Room Air 11/30/23 16:20 11/30/23 11/30/23 11/30/23 06:59 14:59 22:59 Intake Total 3730.834 / 6450.834 1600 / 1600 1240 / 2840 Output Total 1999 / 4900 2060 / 2060 900 / 2960 Balance 1730.834 / 1550.834 -460 / -460 340 / -120 Weight last 48 hrs Weight 80.286 kg Weight 79.832 kg Weight 77.111 kg Weight 77.111 kg Physical Exam 2 Const: COMMON NORMALS: patient oriented x3 and alert GENERAL APPEARANCE: c ooperative ORIENTATION/CONSCIOUSNESS: Yes awake HENMT: COMMON NORMALS: oropharynx normal Neck/C-Spine: COMMON NORMALS: no JVD Resp: COMMON NORMALS: normal respiratory effort and clear to auscultation bilaterally AUSCULTATION: clear to auscultation bilaterally Cardio: COMMON NORMALS: no JVD, regular rhythm, S1 normal heart sound present, S2 normal heart sound present and No murmurs present (Cardio) RHYTHM: regular rhythm HEART SOUNDS: S1 normal heart sound present and S2 normal heart sound present GI: COMMON NORMALS: Normal to inspection, nondistended, normoactive bowel sounds present, Soft to palpation and non-tender PALPATION: Yes Soft to palpation Extremity: COMMON NORMALS: no joint enlargement and no pedal edema Neuro: COMMON NORMALS: patient oriented x3 and moves all extremities S ENSORIUM/ORIENTATION: Yes alert Skin: COMMON NORMALS: no rashes or lesions noted GENERAL SKIN EXAM: no rashes or lesions noted OTHER: Tattoos. Data 11/30/23 04:37 11/30/23 04:37 Micro: Microbiology 11/29/23 00:00 Blood Culture - Preliminary Blood NEGATIVE TO DATE 11/29/23 00:00 Blood Culture - Preliminary Blood NEGATIVE TO DATE A&P Assessment and plan (1) Rhabdomyolysis: Reviewed vitals, CBC. Afebrile, no leukocytosis. Reviewed chemistry, renal function is good. BUN down to 14, creatinine is normal 0.9. Reviewed liver parameters, AST down to 851, ALT down to 311. Reviewed CK, down to 57,000. Rhabdomyolysis improving. Continue with increased IV fluid infusion. He denies any dyspnea, edema. Monitor for risk of fluid overload/respiratory compromise/pulmonary edema. Requesting repeat CMP, CK. understands the risk to his kidneys in case therapy is interrupted early. Discussed with nursing, geriatric case manager. No discharge. Due to still significant risk to his kidneys He was working out on both Tuesday and Tuesday and also working on Tuesday. She works at a [employer] performing physical work without air conditioning. Qualifiers: Rhabdomyolysis type: non-traumatic Qualified Code(s): M62.82 - Rhabdomyolysis (2) Acute hepatitis: Liver parameters reviewed and are improving. Reviewed tick panel, pending. Suspected acute transaminitis, although he states he has not had blood drawn in years. Unknown baseline liver parameters. There is quite significant elevation of AST compared to ALT and likely this may be spurious result due to severe CK elevation/rhabdomyolysis. So far hepatitis studies have been negative on review of viral hepatitis test, coronavirus PCR panel, HIV, respiratory viral panel negative. Tick panel pending, although he is not aware of getting any ticks. Reassess liver parameters. He occasionally takes ibuprofen for aches and pains, but nothing recent. Discussed with him to avoid NSAIDs. Discussed with him and his family to follow-up for reassessment for normalization of liver function and/or further workup for any possible underlying chronic metabolic/autoimmune or other cause. Reassess CMP. (3) YONATAN (acute kidney injury): related to rhabdomyolysis Ua with 3+ blood, likely myoglobin Plan Dvt ppx: lovenox 40 Full code Attestations 2 Medical Necessity Statement*: Continue admission for assessment management of severe rhabdomyolysis, hepatitis. and High MDM includes amount and/or complexity of data reviewed/ordered [ resulted lab(s)/test(s), ordered lab(s)/test(s) and other healthcare professional discussion] and described risk of complication, morbidity or mortality of management as documented Diagnoses Rhabdomyolysis M62.82 Rhabdomyolysis type: non-traumatic Acute hepatitis B17.9 YONATAN (acute kidney injury) N17.9
[2023-12-01] VITALS (8 sets, daily range): BP systolic 123–130; BP diastolic 72–80; PULSE 50–81; RESP 18–20; TEMP 36.5–37.1; O2SAT 96–99; BMI 23.3
[2023-12-01] MEDS: enoxaparin 40 mg/0.4 mL Syringe SUBCUT (03:28)
[2023-12-01] MEDS: sodium chloride 0.9% 1,000 ML 250 ML IV ×5 (03:28→21:03)
[2023-12-01 06:29] LABS: Basophils % 0.4 %; Eosinophils # 0.6 10^3/uL (0.0-0.8); Eosinophils % 6.9 %; Hematocrit 42.6 % (37-53); Lymphocytes # 2.2 10^3/uL (0.8-4.8); Lymphocytes % 27.4 %; Mean Corpuscular HGB Conc 33.3 g/dL (30-55); Mean Corpuscular Hemoglobin 28.3 pg (27-33); Mean Corpuscular Volume 84.9 fl (82-101); Mean Platelet Volume 9.4 fL (7.4-10.4); Monocytes # 0.6 10^3/uL (0.2-0.9); Neutrophils # 4.56 10^3/uL (1.8-7.7); Nucleated Red Blood Cells % 0 %; Platelet Count 212 10^3/cmm (157-399); Red Blood Count 5.02 10^6/uL (3.85-5.65); Red Cell Distribution Width 12.4 % (12.1-15.1); White Blood Count 7.99 10^3/uL (3.29-11.43)
[2023-12-01 06:45] LABS: Alanine Aminotransferase 294 U/L (0-41); Albumin Level 3.9 g/dL (3.5-5.2); Alkaline Phosphatase 29 U/L (40-130); Anion Gap 10.4 (5-19); Aspartate Amino Transferase 546 U/L (0-40); Blood Urea Nitrogen 9 mg/dL (6-20); Calcium 8.8 mg/dL (8.5-10.5); Carbon Dioxide 27 mmol/L (22-29); Chloride 106 mmol/L (98-107); Globulin 2.2 g/dL (1.3-4.6); Glomerular Filtration Rate 97.8 mL/min (90-130); Glucose 92 mg/dL (65-115); Osmolality Calculated 286 mOsm/kg (285-295); Potassium 4.4 mmol/L (3.5-5.1); Sodium 139 mmol/L (136-145); Total Bilirubin 0.5 mg/dL (0.15-1.2); Total Protein 6.1 g/dL (6.6-8.7)
[2023-12-01 07:39] LABS: Creatine Phosphokinase 34276 U/L (39-308)
[2023-12-01] MEDS: pantoprazole DR 40 mg Tablet PO (08:37)
--- NOTE | 2023-12-01 20:31 | P.PN_ITS ---
Subjective 2 Subjective: He states he is doing well. Denies pain or discomfort. No trouble breathing. No edema. Vitals/I&O/Wt Last Vital Signs Temp 98.8 F 12/01/23 20:00 Pulse 81 12/01/23 20:00 Resp 20 H 12/01/23 20:00 BP 125/75 12/01/23 20:00 Pulse Ox 97 12/01/23 20:00 O2 Del Method Room Air 12/01/23 20:00 12/01/23 12/01/23 12/01/23 06:59 14:59 22:59 Intake Total 2420.833 / 6491.666 2720 / 2720 1480 / 4200 Output Total 1850 / 6010 1600 / 1600 1150 / 2750 Balance 570.833 / 438.519 0004 / 1120 330 / 1450 Weight last 48 hrs Weight 80.286 kg Weight 80.286 kg Physical Exam 2 Narrative: Accompanied by his foster mom. Const: COMMON NORMALS: patient oriented x3 and alert GENERAL APPEARANCE: c ooperative ORIENTATION/CONSCIOUSNESS: Yes awake HENMT: COMMON NORMALS: oropharynx normal Neck/C-Spine: COMMON NORMALS: no JVD Resp: COMMON NORMALS: normal respiratory effort and clear to auscultation bilaterally AUSCULTATION: clear to auscultation bilaterally Cardio: COMMON NORMALS: no JVD, regular rhythm, S1 normal heart sound present, S2 normal heart sound present and No murmurs present (Cardio) RHYTHM: regular rhythm HEART SOUNDS: S1 normal heart sound present and S2 normal heart sound present GI: COMMON NORMALS: Normal to inspection, nondistended, normoactive bowel sounds present, Soft to palpation and non-tender PALPATION: Yes Soft to palpation Extremity: COMMON NORMALS: no joint enlargement and no pedal edema Neuro: COMMON NORMALS: patient oriented x3 and moves all extremities S ENSORIUM/ORIENTATION: Yes alert Skin: COMMON NORMALS: no rashes or lesions noted GENERAL SKIN EXAM: no rashes or lesions noted OTHER: Tattoos. Data 12/01/23 06:14 12/01/23 06:14 A&P Assessment and plan (1) Rhabdomyolysis: Reviewed vitals, CK, CMP, renal function, CBC. Renal function remained good. CK gradually decreasing, down to 34,000 today. Gradual decrease in liver parameters. Continue IV hydration, monitor for signs/risk of fluid overload. Still at risk of kidney injury. Discussed with him also regarding strategies to avoid recurrence of rhabdomyolysis in the future, avoiding overly strenuous exercise followed by physical activity at work and high temperature, staying hydrated, avoiding preworkout or other nutraceuticals and he will avoid creatine supplements. Discussed with nursing, case fitter. Not ready for discharge yet. Reassess CK, chemistry. He was working out on both Tuesday and Tuesday and also working on Tuesday. She works at a [employer] performing physical work without air conditioning. Qualifiers: Rhabdomyolysis type: non-traumatic Qualified Code(s): M62.82 - Rhabdomyolysis (2) Acute hepatitis: Reviewed, improving. Reviewed tick panel, pending. Suspected acute transaminitis, although he states he has not had blood drawn in years. Unknown baseline liver parameters. There is quite significant elevation of AST compared to ALT and likely this may be spurious result due to severe CK elevation/rhabdomyolysis. So far hepatitis studies have been negative on review of viral hepatitis test, coronavirus PCR panel, HIV, respiratory viral panel negative. Tick panel pending, although he is not aware of getting any ticks. Reassess liver parameters. He occasionally takes ibuprofen for aches and pains, but nothing recent. Discussed with him to avoid NSAIDs. Discussed with him and his family to follow-up for reassessment for normalization of liver function and/or further workup for any possible underlying chronic metabolic/autoimmune or other cause. Reassess CMP. (3) YONATAN (acute kidney injury): related to rhabdomyolysis Ua with 3+ blood, likely myoglobin Plan Dvt ppx: lovenox 40 Full code Attestations 2 Medical Necessity Statement*: Continue admission for assessment management of severe rhabdomyolysis, hepatitis. and High MDM includes amount and/or complexity of data reviewed/ordered [ resulted lab(s)/test(s), ordered lab(s)/test(s) and other healthcare professional discussion] and described risk of complication, morbidity or mortality of management as documented Diagnoses Rhabdomyolysis M62.82 Rhabdomyolysis type: non-traumatic Acute hepatitis B17.9 YONATAN (acute kidney injury) N17.9
[2023-12-02] MEDS: sodium chloride 0.9% 1,000 ML 250 ML IV ×6 (00:54→20:37)
[2023-12-02] MEDS: enoxaparin 40 mg/0.4 mL Syringe SUBCUT (02:29)
[2023-12-02 04:00] VITALS: BP 127/77; PULSE 80; RESP 20; TEMP 36.4; O2SAT 97
[2023-12-02 04:13] VITALS: BMI 23.2
[2023-12-02 06:12] LABS: Basophils % 0.4 %; Eosinophils # 0.4 10^3/uL (0.0-0.8); Eosinophils % 6.1 %; Hematocrit 43.1 % (37-53); Lymphocytes # 2.3 10^3/uL (0.8-4.8); Mean Corpuscular HGB Conc 32.7 g/dL (30-55); Mean Corpuscular Hemoglobin 28.4 pg (27-33); Mean Corpuscular Volume 86.7 fl (82-101); Mean Platelet Volume 9.8 fL (7.4-10.4); Monocytes # 0.6 10^3/uL (0.2-0.9); Monocytes % 7.9 %; Neutrophils # 3.94 10^3/uL (1.8-7.7); Neutrophils % 54.3 %; Nucleated Red Blood Cells % 0 %; Platelet Count 217 10^3/cmm (157-399); Red Blood Count 4.97 10^6/uL (3.85-5.65); Red Cell Distribution Width 12.5 % (12.1-15.1); White Blood Count 7.25 10^3/uL (3.29-11.43)
[2023-12-02 06:38] LABS: Alanine Aminotransferase 254 U/L (0-41); Alkaline Phosphatase 30 U/L (40-130); Anion Gap 14.2 (5-19); Aspartate Amino Transferase 268 U/L (0-40); Blood Urea Nitrogen 12 mg/dL (6-20); Calcium 9.1 mg/dL (8.5-10.5); Carbon Dioxide 26 mmol/L (22-29); Chloride 106 mmol/L (98-107); Creatinine Clr Calc Pharmacy 119.8092; Globulin 1.8 g/dL (1.3-4.6); Glomerular Filtration Rate 86.6 mL/min (90-130); Glucose 90 mg/dL (65-115); Osmolality Calculated 293 mOsm/kg (285-295); Potassium 4.2 mmol/L (3.5-5.1); Sodium 142 mmol/L (136-145); Total Bilirubin 0.4 mg/dL (0.15-1.2); Total Protein 5.8 g/dL (6.6-8.7)
[2023-12-02 06:49] LABS: Creatine Phosphokinase 13033 U/L (39-308)
[2023-12-02 07:06] VITALS: BP 130/76; PULSE 61; RESP 17; TEMP 36.9; O2SAT 97
[2023-12-02] MEDS: pantoprazole DR 40 mg Tablet PO (08:34)
[2023-12-02 11:13] VITALS: BP 135/84; PULSE 79; RESP 18; TEMP 36.7; O2SAT 91
[2023-12-02 16:00] VITALS: BP 130/83; PULSE 50; RESP 18; TEMP 36.7; O2SAT 100
[2023-12-02 16:28] LABS: Creatine Phosphokinase 9870 U/L (39-308)
--- NOTE | 2023-12-02 19:42 | PM.PN ---
Subjective Subjective: Denies any new developments. No trouble breathing. No edema. No chest pain. Vitals/I&O/Wt Last Vital Signs Temp 98.0 F 12/02/23 16:00 Pulse 50 L 12/02/23 16:00 Resp 18 12/02/23 16:00 BP 130/83 12/02/23 16:00 Pulse Ox 100 12/02/23 16:00 O2 Del Method Room Air 12/02/23 16:00 12/02/23 12/02/23 12/02/23 06:59 14:59 22:59 Intake Total 2405.0 / 8039.167 2434.167 / 2434.167 1240 / 3674.167 Output Total 400 / 3900 3350 / 3350 Balance 2005.0 / 4139.167 -915.833 / -624.604 7621 / 324.167 Weight last 48 hrs Weight 79.832 kg Weight 80.286 kg Physical Exam Const: COMMON NORMALS: patient oriented x3 and alert GENERAL APPEARANCE: cooperative ORIENTATION/CONSCIOUSNESS: Yes awake HENMT: COMMON NORMALS: oropharynx normal Neck/C-Spine: COMMON NORMALS: no JVD Resp: COMMON NORMALS: normal respiratory effort and clear to auscultation bilaterally AUSCULTATION: clear to auscultation bilaterally Cardio: COMMON NORMALS: no JVD, regular rhythm, S1 normal heart sound present, S2 normal heart sound present and No murmurs present (Cardio) RHYTHM: regular rhythm HEART SOUNDS: S1 normal heart sound present and S2 normal heart sound present GI: COMMON NORMALS: Normal to inspection, nondistended, normoactive bowel sounds present, Soft to palpation and non-tender PALPATION: Yes Soft to palpation Extremity: COMMON NORMALS: no joint enlargement and no pedal edema Neuro: COMMON NORMALS: patient oriented x3 and moves all extremities SENSORIUM/ORIENTATION: Yes alert Skin: COMMON NORMALS: no rashes or lesions noted GENERAL SKIN EXAM: no rashes or lesions noted OTHER: Tattoos. Data 12/02/23 05:14 12/02/23 05:14 A&P Assessment and plan (1) Rhabdomyolysis: Reviewed vitals, CK, CMP, renal function, CBC. CK is decreasing. He would like to go home as such we discussed repeating CK again this evening to see if he is may be getting closer to 5000 breaking point at which point he could go home. Repeated, reviewed CK from this evening, still around 10,000. Continue IV hydration with high rate fluid infusion, monitor for signs/risk of fluid overload. Repeat in the morning, possible discharge tomorrow. Discussed with nursing, registered nurse hh case manager. Discussed with him also regarding strategies to avoid recurrence of rhabdomyolysis in the future, avoiding overly strenuous exercise followed by physical activity at work and high temperature, staying hydrated, avoiding preworkout or other nutraceuticals and he will avoid creatine supplements. Discussed with nursing, registered nurse hh case manager. Not ready for discharge yet. Reassess CK, chemistry. He was working out on both Tuesday and Tuesday and also working on Tuesday. She works at a [employer] performing physical work without air conditioning. Qualifiers: Rhabdomyolysis type: non-traumatic Qualified Code(s): M62.82 - Rhabdomyolysis (2) Acute hepatitis: CMV IgG elevated, IgM low. The panel still pending on review. HIV negative. EBV negative. Liver parameters continue to decrease. Suspect related to CK elevation. However, he was also asking regarding having 1 or 2 beers during the fourth, discussed with him the safer thing to do would be to avoid alcohol for now until liver function can be confirmed to normalize entirely, although overall with rapid improvement and likely related to CKD at least possibly limiting to 1 beer. Similarly with any edibles. Discussed consideration in case of vaginal liver injury it may affect his metabolism of substances and advised to avoid or at least exercise caution/substantially decrease the amount compared to what he might have taken in the past. Repeat CMP. Suspected acute transaminitis, although he states he has not had blood drawn in years. Unknown baseline liver parameters. There is quite significant elevation of AST compared to ALT and likely this may be spurious result due to severe CK elevation/rhabdomyolysis. So far hepatitis studies have been negative on review of viral hepatitis test, coronavirus PCR panel, HIV, respiratory viral panel negative. Tick panel pending, although he is not aware of getting any ticks. Reassess liver parameters. He occasionally takes ibuprofen for aches and pains, but nothing recent. Discussed with him to avoid NSAIDs. Discussed with him and his family to follow-up for reassessment for normalization of liver function and/or further workup for any possible underlying chronic metabolic/autoimmune or other cause. Reassess CMP. (3) YONATAN (acute kidney injury): Resolved. Related to rhabdomyolysis Ua with 3+ blood, likely myoglobin Plan Dvt ppx: lovenox 40 Full code Attestations Medical Necessity Statement*: Continue admission for assessment management of severe rhabdomyolysis, hepatitis. and High MDM includes amount and/or complexity of data reviewed/ordered [ resulted lab(s)/test(s), ordered lab(s)/test(s) and other healthcare professional discussion] and described risk of complication, morbidity or mortality of management as documented Diagnoses Rhabdomyolysis M62.82 Rhabdomyolysis type: non-traumatic Acute hepatitis B17.9 YONATAN (acute kidney injury) N17.9
[2023-12-02 20:00] VITALS: BP 131/78; PULSE 48; RESP 20; TEMP 36.6; O2SAT 99
[2023-12-02 23:51] VITALS: BP 117/70; PULSE 63; RESP 17; TEMP 36.4; O2SAT 96
[2023-12-03] MEDS: sodium chloride 0.9% 1,000 ML 250 ML IV ×3 (00:56→08:34)
[2023-12-03] MEDS: enoxaparin 40 mg/0.4 mL Syringe SUBCUT (03:22)
[2023-12-03 04:50] VITALS: BP 130/84; PULSE 46; RESP 15; TEMP 36.9; O2SAT 97
[2023-12-03 05:57] LABS: Alanine Aminotransferase 210 U/L (0-41); Alkaline Phosphatase 32 U/L (40-130); Aspartate Amino Transferase 142 U/L (0-40); Blood Urea Nitrogen 12 mg/dL (6-20); Carbon Dioxide 27 mmol/L (22-29); Chloride 105 mmol/L (98-107); Creatinine Clr Calc Pharmacy 119.9286; Globulin 2.4 g/dL (1.3-4.6); Glomerular Filtration Rate 86.6 mL/min (90-130); Glucose 92 mg/dL (65-115); Osmolality Calculated 289 mOsm/kg (285-295); Sodium 140 mmol/L (136-145); Total Bilirubin 0.3 mg/dL (0.15-1.2); Total Protein 6.4 g/dL (6.6-8.7)
[2023-12-03 05:58] LABS: Anion Gap 12.2 (5-19); Potassium 4.2 mmol/L (3.5-5.1)
[2023-12-03 06:11] LABS: Creatine Phosphokinase 5530 U/L (39-308)
[2023-12-03 08:18] VITALS: BP 144/86; PULSE 54; RESP 18; TEMP 36.4; O2SAT 99
[2023-12-03] MEDS: pantoprazole DR 40 mg Tablet PO (08:34)
--- NOTE | 2023-12-03 09:04 | P.DS_ITS ---
Discharge Providers Date of Admission: 11/28/23 22:11 Date of Discharge: December 03, 2023 Attending Provider at Admission: Dalia Rosales MD Attending Provider at Discharge: Josue Scott Primary Care Provider: Herberth Giang NP Diagnoses at Discharge Discharge Diagnosis (1) Rhabdomyolysis: Status: Acute Qualifiers: Rhabdomyolysis type: non-traumatic Qualified Code(s): M62.82 - Rhabdomyolysis (2) Acute hepatitis: Status: Acute (3) YONATAN (acute kidney injury): Status: Acute Reason for Visit Reason for Visit: [place] is a dark brown color Brief History: Mark White is a 33 year old male who presented to the emergency room after noticing high colored urine. State of health until yesterday when he noticed his urine to be extremely uncomfortable. This made him concerned to come to the emergency room. Here he was found to have close transaminitis and rhabdomyolysis. He denies any IV drug use. Denies any recent nausea vomiting diarrhea. He has recently started working out in the gym over the weekend. He has had generalized body ache thereafter. He has been drinking some Meal replacement protein supplements over the past few months. He is unsure of contents of the same. No recent URI symptoms, cough, chest pain, dyspnea. No abdominal pain, nausea or vomiting, diarrhea. No recent fever. T max 99.5F, no recent sick contacts Hospital Course Hospital Course On further discussion of details he did state that he went to the gym on Tuesday and Tuesday and had quite an extensive workout, working out his legs after a long break, then on Tuesday he went to work and was working at different position, 1 requiring much more activity than usual, and there is no AC at work. He additionally states that he was taking preworkout, discussed with him to avoid it if possible, he will continue taking nutritional supplements. However, will avoid creatine which could contribute to elevation of CK. As per discussion he will also avoid pushing himself to the brink of failure with exercise especially if it is his first time exercising in a while, and especially if he has to go to work afterwards, will be mindful of staying hydrated, and/or avoid overly strenuous activity to help reduce chance of recurrence of rhabdomyolysis. Please follow-up liver parameters for continued normalization. Lower suspicion for any tickborne illness, has not had any other symptoms, tick panel is still pending. CK has trended down to 5530, please follow-up for normalization and follow-up renal function. Physical Exam Const: COMMON NORMALS: patient oriented x3 and alert GENERAL APPEARANCE: cooperative ORIENTATION/CONSCIOUSNESS: Yes awake HENMT: COMMON NORMALS: oropharynx normal Neck/C-Spine: COMMON NORMALS: no JVD Resp: COMMON NORMALS: normal respiratory effort and clear to auscultation bilaterally AUSCULTATION: clear to auscultation bilaterally Cardio: COMMON NORMALS: no JVD, regular rhythm, S1 normal heart sound present, S2 normal heart sound present and No murmurs present (Cardio) RHYTHM: regular rhythm HEART SOUNDS: S1 normal heart sound present and S2 normal heart sound present GI: COMMON NORMALS: Normal to inspection, nondistended, normoactive bowel sounds present, Soft to palpation and non-tender PALPATION: Yes Soft to pal pation Extremity: COMMON NORMALS: no joint enlargement and no pedal edema Neuro: COMMON NORMALS: patient oriented x3 and moves all extremities SENSORIUM/ORIENTATION: Yes alert Skin: COMMON NORMALS: no rashes or lesions noted GENERAL SKIN EXAM: no rashes or lesions noted OTHER: Tattoos. Discharge Data Studies Completed and Pending Completed Studies During Hospitalization Category Date Time Status CT abdomen pelvis w con* [id number] Urgent Cat Scan 11/28/23 19:29 Completed Pending at discharge Category Date Time Status Blood Culture Stat Lab 11/28/23 21:41 Results Creatine Phosphokinase AM LABS Lab 12/04/23 04:00 Ordered Creatine Phosphokinase AM LABS Lab 12/05/23 04:00 Ordered Tick Panel Routine Lab 11/29/23 06:10 Results Radiology Impressions Abdomen/Pelvis CT 11/28/23 19:29 IMPRESSION: Unremarkable abdomen and pelvis Laboratory Results WBC 7.25 10^3/uL (3.29-11.43) 12/02/23 05:14 RBC 4.97 10^6/uL (3.85-5.65) 12/02/23 05:14 Hgb 14.10 g/dL (11.27-16.99) 12/02/23 05:14 Hct 43.1 % (37-53) 12/02/23 05:14 MCV 86.7 fl (82-101) 12/02/23 05:14 MCH 28.4 pg (27-33) 12/02/23 05:14 MCHC 32.7 g/dL (30-55) 12/02/23 05:14 RDW 12.5 % (12.1-15.1) 12/02/23 05:14 Plt Count 217 10^3/cmm (157-399) 12/02/23 05:14 MPV 9.8 fL (7.4-10.4) 12/02/23 05:14 Neut % (Auto) 54.3 % 12/02/23 05:14 Lymph % (Auto) 31.0 % 12/02/23 05:14 [place] % (Auto) 7.9 % 12/02/23 05:14 Eos % (Auto) 6.1 % 12/02/23 05:14 Baso % (Auto) 0.4 % 12/02/23 05:14 Neut # (Auto) 3.94 10^3/uL (1.8-7.7) 12/02/23 05:14 Lymph # (Auto) 2.3 10^3/uL (0.8-4.8) 12/02/23 05:14 [place] # (Auto) 0.6 10^3/uL (0.2-0.9) 12/02/23 05:14 Eos # (Auto) 0.4 10^3/uL (0.0-0.8) 12/02/23 05:14 Baso # (Auto) 0.0 10^3/uL (0.0-0.1) 12/02/23 05:14 Nucleated RBC % (auto) 0 % 12/02/23 05:14 Nucleated RBCs # 0.0 /100WBC 12/02/23 05:14 Sodium 140 mmol/L (136-145) 12/03/23 04:41 Potassium 4.2 mmol/L (3.5-5.1) 12/03/23 04:41 Chloride 105 mmol/L (98-107) 12/03/23 04:41 Carbon Dioxide 27 mmol/L (22-29) 12/03/23 04:41 Anion Gap 12.2 (5-19) 12/03/23 04:41 BUN 12 mg/dL (6-20) 12/03/23 04:41 Creatinine 1.0 mg/dL (0.7-1.2) 12/03/23 04:41 GFR Calculation 86.6 mL/min (90-130) L 12/03/23 04:41 Glucose 92 mg/dL (65-115) 12/03/23 04:41 Calculated Osmolality 289 mOsm/kg (285-295) 12/03/23 04:41 Calcium 9.0 mg/dL (8.5-10.5) 12/03/23 04:41 Magnesium 2.1 mg/dL (1.7-2.3) 11/29/23 02:20 Total Bilirubin 0.3 mg/dL (0.15-1.2) 12/03/23 04:41 AST 142 U/L (0-40) H 12/03/23 04:41 ALT 210 U/L (0-41) H 12/03/23 04:41 Alkaline Phosphatase 32 U/L (40-130) L 12/03/23 04:41 Creatine Kinase 5530 U/L (39-308) H* 12/03/23 04:41 Troponin T Baseline 48 ng/L (0-15) H 11/29/23 00:00 Troponin T 120 Minute 38.40 ng/L (0-15) H 11/29/23 02:20 Delta Troponin T -9.60 ABS# (0-10) L 11/29/23 02:20 Troponin T Hi Sens 6Hr 33.00 ng/L (0-15) H 11/29/23 06:10 Troponin T Hi Sens 6Hr Delta -15.00 ng/L (0-12) L 11/29/23 06:10 Total Protein 6.4 g/dL (6.6-8.7) L 12/03/23 04:41 Albumin 4.0 g/dL (3.5-5.2) 12/03/23 04:41 Globulin 2.4 g/dL (1.3-4.6) 12/03/23 04:41 Procalcitonin 0.24 ng/mL (0-0.5) 11/29/23 02:20 TSH 2.85 uIU/mL (0.27-4.20) 11/29/23 02:20 Urine Color Yellow (Yellow) 11/28/23 20:37 Urine Appearance Clear (CLEAR) 11/28/23 20:37 Urine pH 5 (5-7) 11/28/23 20:37 Ur Specific [place] 1.010 (1.005-1.030) 11/28/23 20:37 Urine Protein 1+ (Negative) H 11/28/23 20:37 Urine Glucose (UA) Norm (Normal) 11/28/23 20:37 Urine Ketones Negative (Negative) 11/28/23 20:37 Urine Blood 3+ (Negative) H 11/28/23 20:37 Urine Nitrate Negative (Negative) 11/28/23 20:37 Urine Bilirubin Neg (Negative) 11/28/23 20:37 Urine Urobilinogen Neg mg/dL (Negative) 11/28/23 20:37 Ur Leukocyte Esterase Negative (Negative) 11/28/23 20:37 Urine RBC 0-4 /hpf (0-2) H 11/28/23 20:37 Urine WBC 0-4 /hpf (0-5) H 11/28/23 20:37 Ur Squamous Epith Cells None /hpf (0-5) 11/28/23 20:37 Amorphous Sediment 2+ /hpf 11/28/23 20:37 Urine Bacteria Trace /hpf (NONE) 11/28/23 20:37 Urine Mucus 2+ /hpf 11/28/23 20:37 Salicylates < 0.3 mg/dL (3-10) L 11/29/23 02:20 Urine Opiates Screen Negative ng/mL (Negative) 11/28/23 20:37 Acetaminophen < 5.0 ug/mL (10-30) L 11/29/23 02:20 Ur Barbiturates Screen Negative ng/mL (Negative) 11/28/23 20:37 Ur Phencyclidine Scrn Negative ng/mL (Negative) 11/28/23 20:37 Ur Amphetamines Screen Negative ng/mL (Negative) 11/28/23 20:37 U Benzodiazepines Scrn Negative ng/mL (Negative) 11/28/23 20:37 Urine Cocaine Screen Negative ng/mL (Negative) 11/28/23 20:37 U Marijuana (THC) Screen Negative ng/mL (Negative) 11/28/23 20:37 Ethyl Alcohol < 10 mg/dL (0-10) 11/29/23 02:20 Adenovirus (PCR) Not detected (NOT DETECT) 11/29/23 04:42 Lyme Ab (Western Blot) <0.90 index 11/29/23 06:10 C. pneumoniae DNA (PCR) Not detected (NOT DETECT) 11/29/23 04:42 Coronavirus 229E (PCR) Not detected (NOT DETECT) 11/29/23 04:42 CMV IgG Ab 7.90 U/mL H 11/29/23 02:54 CMV IgM Ab <30.00 AU/mL 11/29/23 02:54 EBV IgG Ab <18.00 U/mL 11/29/23 02:54 EBV IgM Ab <36.00 U/mL 11/29/23 02:54 EBV Nuclear Antigen <18.00 U/mL 11/29/23 02:54 EBV Interpretation See note 11/29/23 02:54 Hepatitis A IgM Ab Non-reactive (Nonreactive) 11/28/23 18:45 Hep Bs Antigen Non-reactive (Nonreactive) 11/28/23 18:45 Hep B Core IgM Ab Non-reactive (Nonreactive) 11/28/23 18:45 Hepatitis C Antibody Non-reactive (Nonreactive) 11/28/23 18:45 HIV 1&2 Ab & HIV 1 Ag Non-reactive (Non-Reactiv) 11/29/23 06:10 HIV 1&2 Antibody Non-reactive (Non-Reactiv) 11/29/23 06:10 Human Metapneumovir PCR Not detected (NOT DETECT) 11/29/23 04:42 Influenza A (H1) PCR Not detected (NOT DETECT) 11/29/23 04:42 Influ A (H1/09) PCR Not detected (NOT DETECT) 11/29/23 04:42 Influenza A (H3) PCR Not detected (NOT DETECT) 11/29/23 04:42 Influenza Type A (PCR) Not detected (NOT DETECT) 11/29/23 04:42 Influenza Type B (PCR) Not detected (NOT DETECT) 11/29/23 04:42 M. pneumoniae (PCR) Not detected (NOT DETECT) 11/29/23 04:42 Parainfluenza 1 (PCR) Not detected (NOT DETECT) 11/29/23 04:42 Parainfluenza 2 (PCR) Not detected (NOT DETECT) 11/29/23 04:42 Parainfluenza 3 (PCR) Not detected (NOT DETECT) 11/29/23 04:42 Parainfluenza 4 (PCR) Not detected (NOT DETECT) 11/29/23 04:42 RSV Type A (PCR) Not detected (NOT DETECT) 11/29/23 04:42 RSV Type B (PCR) Not detected (NOT DETECT) 11/29/23 04:42 Entero/Rhino (PCR) Not detected (NOT DETECT) 11/29/23 04:42 SARS-CoV-2 (PCR) Not detected (NOT DETECT) 11/29/23 04:42 Vitals Last Vital Signs Temp 97.5 F L 12/03/23 08:18 Pulse 54 L 12/03/23 08:18 Resp 18 12/03/23 08:18 BP 144/86 12/03/23 08:18 Pulse Ox 99 12/03/23 08:18 O2 Del Method Room Air 12/03/23 08:18 Discharge Plan Discharge Patient Disposition: Home Condition: Stable Prescriptions: No Action No Known Home Medications Discharge Orders: Discharge Order (Routine); Ordered 12/03/23 Ordered By: Josue Scott Referrals: Flakito Oreilly MD [Referring] - 12/07/23 1:30 pm Discharge Diet: Usual diet and As Directed Discharge Activity: Increase activity as tolerated Patient Instructions: Acute Kidney Injury (DC), Rhabdomyolysis (GEN), Opioid Safety Activity Restrictions/Additional Instructions: Follow-up with your primary doctor for reassessment after rhabdomyolysis. Re assessment of liver parameters for normalization, likely affected by very elevated creatine kinase levels, however, in case not normalized entirely pursue further workup for a possible underlying liver disease. Have your primary doctor reassess your kidney function. Discharge Attestations Time Spent in Discharge Care*: greater than 30 min Quality Metrics Clinical Quality Measures [ No reported AMI, CVA or VTE this stay] Coding Level of Care Code 64436 Total time (in minutes) for Discharge: 50 Diagnoses Rhabdomyolysis M62.82 Rhabdomyolysis type: non-traumatic Acute hepatitis B17.9 YONATAN (acute kidney injury) N17.9
[2023-12-03 09:31] VITALS: BP 144/86; PULSE 54; RESP 18; TEMP 36.4; O2SAT 99
[2023-12-07 20:05] LABS: E. Chaffeensis AB IGG <1:64; E. Chaffeensis AB IGM <1:20
[2023-12-09 22:18] LABS: RMSF IGG NOT DETECTED; RMSF IGM NOT DETECTED
== END 2023-12-03 10:20 | disposition home or self-care (01) | DRG 558 ==
LOC: ER 22:00 → MEDSURG 22:11
PROVIDERS: Emergency Medicine; Admitting Provider Student in an Organized Health Care Education/Training Program; Emergency Provider Physician Assistant; PCP Nurse Practitioner Family; Visit Provider Internal Medicine
DX: M62.82 Rhabdomyolysis (principal); B17.9 Acute viral hepatitis, unspecified; N17.9 Acute kidney failure, unspecified
CPT/HCPCS: 36415; 74177; 80053; 80074; 80306; 80307; 81001; 82550; 83735; 84145; 84443; 84484; 85025; 86618; 86664; 86665; 86666; 86757; 87040; 87486; 87581; 87633; 87806; 93005; 96372; 99285; J1650; J7030; Q9967

== ENCOUNTER 2025-04-01 07:44 | Outpatient (CLI) | payer BC, SELFPAY ==
--- NOTE | 2025-04-01 07:53 | MR_ITS ---
WS: [id number] MRI HEAD WITH CONTRAST WITH ATTENTION TO THE INTERNAL AUDITORY CANALS TECHNIQUE: Sagittal T1, T2 axial, T2 axial flair, axial susceptibility weighted imaging, axial diffusion weighted images, and coronal T2 images were obtained. Pre and post T1 axial and post T1 coronal images. ADC and FSPGR images. Post gadolinium images with attention to the internal auditory canals. Axial fiesta imaging. CLINICAL INFORMATION: CHRONIC R MASTOIDITIS COMPARISON: None. FINDINGS: No evidence of restricted diffusion to suggest acute ischemia. Ventricular system and basal cisterns are patent. No suspicious intracranial signal abnormalities. Normal linares-white differentiation. Normal posterior fossa. Normal vascular flow voids at the skull base. No extra-axial fluid collections. Pa ranasal sinuses are well aerated. Normal posterior nasopharynx. No hemosiderin on susceptibility-weighted images. Proximal 7th and 8th cranial nerves are normal in appearance. No evidence of enhancing IAC or CP angle mass. Normal trigeminal nerve root entry zones. Suspected RIGHT partial mastoidectomy with mild mucosal thickening. This would be better evaluated with CT. MR/MR iac's wo/w con* [id number] IMPRESSION: 1. Proximal 7th and 8th cranial nerves are normal in appearance. No evidence o f enhancing IAC or CP angle mass. 2. Normal trigeminal nerve root entry zones. 3. Mild mucosal thickening in the RIGHT mastoid air cells. Suggestion of prior partial mastoidectomy. This would be better evaluated on CT. 4. Paranasal sinuses and LEFT mastoid air cells are well aerated.
[2025-04-01] MEDS: gadobenate dimeglumine 20 mL vial 15 ML IV (08:44)
== END 2025-04-01 07:45 | disposition home or self-care (01) ==
PROVIDERS: PCP Nurse Practitioner Family; Visit Provider Specialist
DX: H70.11 Chronic mastoiditis, right ear (principal); H65.21 Chronic serous otitis media, right ear; J34.89 Other specified disorders of nose and nasal sinuses
CPT/HCPCS: 70553